=== PATIENT | male | born 1980 | race Two or more races ===

== ENCOUNTER 2017-11-08 08:53 | Emergency (ER) | payer MEDICAID ==
[2017-11-08] MEDS ORDERED: IOPAMIDOL (ISOVUE-300) 100 ML BTL ONE (10:00)
[2017-11-08 10:02] LABS: PLATELET COUNT 237 10^3/uL (150-400)
[2017-11-08 10:13] LABS: INR 0.94 (0.83-1.16); PROTIME(PATIENT) 12.8 SEC (12.0-15.0)
--- NOTE | 2017-11-08 10:55 | ASMTLACE ---
LACE Length of stay for Answers: Less than 1 day current admission Acuity / Level of Answers: No Care: Did the patient have an inpatient admission? # of Emergency department Answers: 0 visits in the last 6 months Social determinants Answers: Homelessness (street, [facility]) Score: 3 Date Signed: 11/08/2017 10:54 AM Electronically Signed By:Karen Salter LCSW
--- NOTE | 2017-11-08 11:04 | ASMTCAGE ---
CAGE Do you feel you ought to Answers: No cut down on your drinking or drug use? Do people annoy you by Answers: No criticizing your drinking or drug use? Do you feel guilty about Answers: No your drinking or drug use? Do you drink or use drugs Answers: No first thing in the morning ([employer])? Additional Comments N/A Date Signed: 11/08/2017 11:04 AM Electronically Signed By:Karen Salter LCSW
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
[2017-11-08 12:09] VITALS: BP 130/87
--- NOTE | 2017-11-12 16:27 | ASMTCMCOM ---
CM Note CM Note Notes: Patient visited this ER on 11/08/17 and CM asked to attempt to reach patient and/or PCP regarding chest x-ray report from the same date. Patient does not have any contact information listed in chart. this CM contacted Jami at [facility] and confirmed that patient was lst seen at the clinic in Jul, 2017 and saw Dayami Jackson. I have faxed a copy of patient's ER report to , attention: Dayami Jackson per Jami's request Date Signed: 11/12/2017 04:26 PM Electronically Signed By:Oneyda Lugo RN
== END 2017-11-08 12:09 | disposition home or self-care (01) ==
DX: S42.001A Fracture of unspecified part of right clavicle, initial encounter for closed fracture (principal); S22.41XA Multiple fractures of ribs, right side, initial encounter for closed fracture; V18.0XXA Pedal cycle driver injured in noncollision transport accident in nontraffic accident, initial encounter; Y93.55 Activity, bike riding
CPT/HCPCS: 82435-PO; 82565-PO; 82947-PO; 84132-PO; 84295-PO; 84520-PO; 85014-PO; Q9967

== ENCOUNTER 2018-01-03 01:31 | Emergency (ER) | payer MEDICAID ==
--- NOTE | 2018-01-03 01:38 | EDPHY ---
H & P Time Seen by Provider: 01/03/18 01:38 HPI/ROS: HPI CHIEF COMPLAINT: Medical clearance for [facility]. Bilateral wrist pain from handcuffs. HISTORY OF PRESENT ILLNESS: 38-year-old male, presents emergency room for medical clearance for [facility]. Patient in handcuffs complaining of bilateral wrist pain. Patient also complains of left shoulder pain due to being in handcuffs. He states remote injury. No new injury. Denies any other areas of injury. Past Medical History: Denies medical history Past Surgical History: Denies recent surgical history Social History: Denies drugs alcohol tobacco. Family History: Noncontributory ROS REVIEW OF SYSTEMS: 10 Systems were reviewed and negative with the exception of the elements mentioned in the history of present illness. Exam Constitutional nontoxic no acute distress triage nursing summary reviewed, vital signs reviewed, awake/alert. Eyes normal conjunctivae and sclera, EOMI, PERRLA. HENT normal inspection, atraumatic, moist mucus membranes, no epistaxis, neck supple/ no meningismus, no raccoon eyes. Respiratory clear to auscultation bilaterally, normal breath sounds, no respiratory distress, no wheezing. Cardiovascular rate normal, regular rhythm, no murmur, no edema, distal pulses normal. Gastrointestinal soft, non-tender, no rebound, no guarding, normal bowel sounds, no distension, no pulsatile mass. Genitourinary no CVA tenderness. Musculoskeletal bilateral wrist are in handcuffs. Otherwise neurovascular intact good cap refill. Good ultrasonic solderer strength bilaterally. no midline vertebral tenderness, full range of motion, no calf swelling, no tenderness of extremities, no meningismus, good pulses, neurovascularly intact. Skin pink, warm, & dry, no rash, skin atraumatic. Neurologic awake, alert and oriented x 3, AAOx3, moves all 4 extremities equally, motor intact, sensory intact, CN II-XII intact, normal cerebellar, normal vision, normal speech. Psychiatric normal mood/affect. Heme/Lymph/Immune no lymphadenopathy. Differential Diagnosis: Includes but is not limited to in a particular order multiple contusions, wrist pain from bilateral handcuffs., shoulder strain due to being in handcuffs. Medical Decision Making: Plan for this patient is medically cleared for [facility]. His main cause of discomfort is handcuffs. He can be appropriately disposition to [facility] and have his handcuffs removed which will that will help him with his wrist pain. Source: Patient, Police, EMS - Medical/Surgical History Hx Asthma: No Hx Chronic Respiratory Disease: No Hx Diabetes: No Hx Cardiac Disease: No Hx Renal Disease: No Hx Cirrhosis: No Hx Alcoholism: No Hx HIV/AIDS: No Hx Splenectomy or Spleen Trauma: No Other PMH: PMH: denies - Social History Smoking Status: Never smoked Allergies/Adverse Reactions: No Known Allergies Allergy (Unverified 11/08/17 08:59) Home Medications: Medication Instructions Recorded Hydrocodone/APAP 5/325 [[place] 1 tab PO Q6H #10 tab 11/08/17 5/325 (*)] Hydrocodone/APAP 5/325 [[place] 1 - 2 tab PO Q6H PRN #15 tab 11/13/17 5/325 (*)] Departure - Departure Disposition: Home, Routine, Self-Care Clinical Impression: Contusion Qualifiers: Encounter type: initial encounter Contusion area: wrist Laterality: unspecified laterality Qualified Code(s): S60.219A - Contusion of unspecified wrist, initial encounter Condition: Good Instructions: Contusion in Adults (ED) Additional Instructions: 1. Medically cleared for [facility]. Referrals: NONE *PRIMARY CARE P,. [Primary Care Provider] - As per Instructions
[2018-01-03 01:42] VITALS: BP 161/90
== END 2018-01-03 01:47 ==
LOC: EDUNIT#
DX: S60.211A Contusion of right wrist, initial encounter (principal); S60.212A Contusion of left wrist, initial encounter; M25.512 Pain in left shoulder; X58.XXXA Exposure to other specified factors, initial encounter; Y99.8 Other external cause status

== ENCOUNTER 2018-01-22 17:38 | Emergency (ER) | payer MEDICAID ==
--- NOTE | 2018-01-22 18:25 | EDPHY ---
H & P Time Seen by Provider: 01/22/18 17:41 HPI/ROS: HPI Seizure activity on waited residential. 38-year-old male who is here with [employer]. He is currently under arrest. When he was told he was going to be taking to residential he started breathing deeply and rolling his eyes the back of his head and twitching intermittently. The brought him here for medical clearance for possible seizure. ROS: Unable to obtain because patient will not cooperate by answering questions. Past medical history: He denies any past medical history. Social history: Currently living on the streets. History of alcohol abuse and drug abuse. Does not smoke. Physical Exam: General Appearance: Dirty and disheveled. There is an odor of alcohol on his breath. Observed wake and alert but then when I came into the room shut his eyes and rolls his eyes to the back of his head and twitches intermittently in his upper and lower extremities. This patient Generally appears well-hydrated and well-nourished. Head: Normocephalic atraumatic. Eyes: Pupils equal and round and reactive to light. no pallor or injection. No lid edema, erythema or injection. No photophobia. No nystagmus. ENT, Mouth: Mucous membranes are moist. The pharyngeal tissues are unremarkable. No edema or swelling. No asymmetry suggestive of abscess. No erythema or exudates. No tongue lacerations or abrasions. Respiratory: There are no retractions, lungs are clear to auscultation with good air movement bilaterally. Cardiovascular: Regular rate and rhythm. No murmur. Gastrointestinal: Abdomen is soft and nontender, no masses, bowel sounds normal. No focal tenderness at McBurney's point. No Villegas sign. Neurological: Motor sensory function is grossly intact. Cranial nerves are normal. Skin: Warm and dry, no rashes. Musculoskeletal: Neck is supple and nontender. Extremities are symmetrical. All joints range without pain or impingement. Psychiatric: No agitation. No depression. Database: EKG: Imaging: Procedures: Emergency department course: Triage vital signs reviewed. He is moderately hypertensive. Mildly tachycardic. Otherwise vital signs are normal. He is afebrile. This patient' s presentation is consistent with pseudoseizures. He was medically cleared for discharge with [employer]. Follow-up and return to emergency department precautions reviewed with him. All of his questions were answered. He was discharged from the emergency department in good condition with [facility]. Differential Diagnosis: The differential diagnosis on this patient includes but is not limited to pseudoseizures. Epileptic seizure, traumatic brain injury, serious bacterial infection unlikely. This represents a partial list of diagnoses considered. These considerations are based on history, physical exam, past history, reassessment and diagnostic testing. Smoking Status: Never smoked Constitutional: Initial Vital Signs Temperature (C) 36.8 C 01/22/18 17:53 Heart Rate 110 H 01/22/18 17:53 Respiratory Rate 20 01/22/18 17:53 Blood Pressure 150/109 H 01/22/18 17:53 O2 Sat (%) 95 01/22/18 17:53 O2 Delivery Mode Room Air Allergies/Adverse Reactions: No Known Allergies Allergy (Unverified 01/03/18 01:41) Home Medications: Medication Instructions Recorded Hydrocodone/APAP 5/325 [[place] 1 - 2 tab PO Q6H PRN #15 tab 11/13/17 5/325 (*)] Medical Decision Making - Data Points Laboratory Results: Laboratory Results 01/22/18 Unknown Departure - Departure Disposition: Home, Routine, Self-Care Clinical Impression: Pseudoseizures Condition: Good Instructions: Recurrent Seizures in Adults (ED) Additional Instructions: Read and follow provided instructions. Follow-up with your primary care physician in 1-2 days for re-evaluation. Return to the emergency department for worsening symptoms or other serious concerns. MEDICALLY CLEARED TO GO TO [facility] Referrals: [facility],. [Clinic] - As per Instructions
[2018-01-22 18:58] VITALS: BP 140/100
== END 2018-01-22 18:58 | disposition home or self-care (01) ==
LOC: EDUNIT#
DX: G40.89 Other seizures (principal); F10.10 Alcohol abuse, uncomplicated; Z59.0 Homelessness

== ENCOUNTER 2018-03-12 16:05 | Emergency (ER) | payer MEDICAID ==
[2018-03-12] MEDS ORDERED: NS 1,000 ML IV ONE ×2 (16:14→17:29)
[2018-03-12] MEDS ORDERED: ONDANSETRON 4 MG/2 ML VIAL IVP ONE ×2 (16:15→17:29)
[2018-03-12] MEDS ORDERED: ACETAMINOPHEN 500 MG TAB PO ONE (16:15)
--- NOTE | 2018-03-12 16:20 | EDPHY ---
H & P Time Seen by Provider: 03/12/18 16:13 HPI/ROS: CLINICAL IMPRESSION: Malaise, nausea and vomiting ASSESSMENT/PLAN: [age] year old male presents to the emergency department by ambulance with complaints of nausea, vomiting, generalized malaise, body aches and abdominal cramping since this morning. Vital signs stable, low-grade temperature of 100 degrees treated with acetaminophen. No signs of severe dehydration. Abdomen soft with no focal peritoneal findings. Labs reassuring with no leukocytosis, electrolyte imbalance, or renal insufficiency. Rapid flu negative. Patient received 2 L of fluid and IV antiemetics. He was able to tolerate p.o. Well. I encouraged PCP follow-up in 24 hr. Low suspicion for acute surgical abdomen. Supportive care discussed, patient to stay in emergency warming [facility]. Warning signs return to ED sooner alignment discharge. DIFFERENTIAL DX: Abdominal pain includes but not limited to acute appendicitis, diverticulitis, cholecystitis, pancreatitis, SBO, gastroenteritis, constipation ED PROCEDURES: See lab and/or imaging results below ED COURSE: Patient reassessed at 5:28 p.m.. States his nausea is not completely improved, body aches feel somewhat better. He has had a L of fluids but does not yet feel the urge to urinate. Rapid flu negative and labs reassuring. 6:30 P.M.: Patient reassessed, sleeping but awakens. Eating crackers and water without vomiting. Plans to stay at the emergency warming [facility]. I emphasized the need for primary care follow-up and he agrees to this. Prescription for antinausea medication provided. CHIEF COMPLAINT: I hurt all over HPI: 38-year-old homeless male presents to the emergency department by ambulance from [facility] after he reports that he has been feeling unwell since this morning. Patient reports nausea, vomiting, diarrhea, generalized abdominal cramping, sore throat and body aches. He states he feels cold all over. He has been staying in the homeless alf. He did not get a flu shot this year. He does not take any regular prescription medications, smokes marijuana but denies cigarettes and denies illicit drugs. He also denies alcohol. He has no reported allergies. He has been living in [place] for over a year from [place]. He was recently released from [facility] 5 days ago. He has been trying to stay well-hydrated but has not taken any medications. He is currently not working PAST MEDICAL HISTORY: See triage summary and nurse notes for addition applicable history Pertinent Past Surgical History: None reported Family History: Noncontributory Social History: Homeless, does not drink alcohol, does not smoke cigarettes, smokes marijuana REVIEW OF SYSTEMS: A full 10 point review of systems was negative except for those mentioned in HPI. PHYSICAL EXAM: General Appearance: Alert, oriented, appropriate, cooperative, NAD, well hydrated, non-toxic appearing, VSS, low-grade fever of 100, no hypoxia. HEENT: TMs are clear bilaterally no perforation or FB, no injection, no evidence of serous or mucopurulent otitis. Oropharynx clear mild erythema or exudates, no tonsillar hypertrophy or asymmetry. Dentition without abnormality. Eyes: PERRLA, no acute vision change, nystagmus, swelling, discharge, pain or photosensitivity. Conjunctiva pink, no pallor or injection Neck: Supple, nontender, no lymphadenopathy, no midline pain, FROM, no meningismus. Respiratory: There are no retractions, lungs are clear to auscultation. Cardiac: Regular rate and rhythm, no murmurs or gallops. Gastrointestinal: Abdomen is soft, nontender, bowel sounds normal, no masses/ hernia, no rigidity, guarding or focal peritoneal findings. Skin: Warm, dry, no rashes, no nodules on palpation. MEDICAL DECISION MAKING: Patient was seen independently. Secondary supervising physician at time of evaluation was: Dr. Mike. Diagnosis: Myalgias, nausea and vomiting. New, requires workup Summary: See Assessment and Plan for summary of ED visit Clinical lab tests: ordered / reviewed. Decision to obtain medical records or history from someone other than the patient: No Review / Summarize previous medical records: None available Discussed patient with another provider: No Patient Progress: Improved. Smoking Status: Never smoked Constitutional: Initial Vital Signs Temperature (C) 37.8 C 03/12/18 16:08 Heart Rate 98 03/12/18 16:08 Respiratory Rate 18 03/12/18 16:08 Blood Pressure 128/70 H 03/12/18 16:08 O2 Sat (%) 99 03/12/18 16:08 O2 Delivery Mode Room Air Allergies/Adverse Reactions: No Known Allergies Allergy (Verified 03/12/18 16:07) Home Medications: Medication Instructions Recorded Ondansetron Odt [Zofran Odt] 4 mg PO Q4PRN PRN #7 tab 03/12/18 MDM/Departure - MDM Medications Given: Discontinued Medications Acetaminophen (Tylenol) 1,000 mg PO EDNOW ONE Stop: 03/12/18 16:16 Last Admin: 03/12/18 16:23 Dose: 1,000 mg Sodium Chloride (Ns) 1,000 mls @ 0 mls/hr IV EDNOW ONE; Wide Open PRN Reason: Protocol Stop: 03/12/18 16:15 Last Admin: 03/12/18 16:23 Dose: 1,000 mls Sodium Chloride (Ns) 1,000 mls @ 0 mls/hr IV EDNOW ONE; Wide Open PRN Reason: Protocol Stop: 03/12/18 17:30 Last Admin: 03/12/18 17:37 Dose: 1,000 mls Famotidine/Sodium Chloride (Pepcid 20 Mg (Premix)) 50 mls @ 200 mls/hr IV EDNOW ONE Stop: 03/12/18 17:43 Last Admin: 03/12/18 17:37 Dose: 50 mls Ondansetron HCl (Zofran) 4 mg IVP EDNOW ONE Stop: 03/12/18 16:16 Last Admin: 03/12/18 16:23 Dose: 4 mg Ondansetron HCl (Zofran) 4 mg IVP EDNOW ONE Stop: 03/12/18 17:30 Last Admin: 03/12/18 17:37 Dose: 4 mg - Depart Disposition: Home, Routine, Self-Care Clinical Impression: Nausea and vomiting Qualifiers: Vomiting type: unspecified Vomiting Intractability: non-intractable Qualified Code(s): R11.2 - Nausea with vomiting, unspecified Condition: Good Instructions: Acute Nausea and Vomiting (ED) Additional Instructions: DISCHARGE INSTRUCTIONS FROM YOUR DOCTOR Thank you for visiting our emergency department today. Please keep in mind that discharge from the emergency department does not mean that there is nothing wrong - it simply means that we have not identified an emergency condition that requires further evaluation or treatment in the hospital. You should always plan to follow up with primary care for re-evaluation of your condition in the next 2-3 days. If you have been referred to a specialist, please call as soon as possible (today or tomorrow) to schedule your follow up appointment at the appropriate time. YOUR LABORATORY EVALUATION TODAY WAS REASSURING. YOU DID NOT HAVE AN ELEVATION IN YOUR INFECTION FIGHTING COUNT AND YOUR KIDNEY FUNCTION AND ELECTROLYTES WERE NORMAL. YOUR FLU TEST WAS NEGATIVE. WE GAVE YOU 2 L OF IV FLUID TO REHYDRATE YOU. WE RECOMMEND THAT YOU FOLLOW UP IN 24-48 HOURS WITH A PRIMARY CARE PROVIDER AND IF YOU DO NOT HAVE ONE A REFERRAL WAS PROVIDED. PLEASE RE-HYDRATE SLOWLY, START WITH LIQUIDS, SOUP BROTH AND ADVANCE TO BLAND DIET TOLERATED. A PRESCRIPTION FOR ANTINAUSEA MEDICATION WAS PROVIDED TO USE IF NEEDED. RETURN TO THE EMERGENCY DEPARTMENT FOR WORSENING OR SEVERE ABDOMINAL PAIN, PERSISTENT VOMITING OR DIARRHEA, BLOOD IN YOUR VOMIT OR DIARRHEA , PERSISTENT FEVERS, INABILITY TO STAY HYDRATED, OR ANY OTHER CONCERNS. People present with illnesses and injuries in different ways, and it is always possible that we have missed something. You may always return for re-evaluation if symptoms worsen or if they are not improving or if you develop new/different symptoms. Again, thank you for choosing our emergency department. We hope that you feel better. Prescriptions: Ondansetron Odt [Zofran Odt] 4 mg PO Q4PRN PRN #7 tab PRN Reason: Nausea/Vomiting, Can'T Take Po Referrals: Patient,NotPresent [Unknown] - As per Instructions [facility] [Clinic] - As per Instructions
[2018-03-12 16:36] LABS: PLATELET COUNT 308 10^3/uL (150-400)
[2018-03-12] MEDS ORDERED: FAMOTIDINE 20 MG/NACL 50 ML IV ONE (17:29)
[2018-03-12 18:07] VITALS: BP 123/71
== END 2018-03-12 18:40 | disposition home or self-care (01) ==
LOC: EDUNIT#
DX: R11.2 Nausea with vomiting, unspecified (principal); E86.9 Volume depletion, unspecified; R53.81 Other malaise; M79.10 Myalgia, unspecified site; Z59.0 Homelessness
CPT/HCPCS: 96374; J2405